=== PATIENT | male | born 2005 | race American Indian/Alaskan Native ===

== ENCOUNTER 2023-04-27 23:08 | Emergency (ER) | payer MEDICAID, OTHER ==
[2023-04-27 23:38] VITALS: BP 160/79; PULSE 95
[2023-04-27] MEDS ORDERED: Amoxicillin/Clavulanate K 875-125 MG Tab PO ONE (23:45)
[2023-04-27] MEDS ORDERED: Acetaminophen 500 MG Tab PO ONE (23:51)
== END 2023-04-28 00:04 | disposition home or self-care (01) ==
LOC: DL.ED 23:08
DX: H66.91 Otitis media, unspecified, right ear (principal)
CPT/HCPCS: 99282; A9270-GY

== ENCOUNTER 2024-02-10 17:31 | Emergency (ER) | payer BC, MEDICAID ==
[2024-02-10 18:10] VITALS: BP 167/82; PULSE 97
== END 2024-02-10 20:14 | disposition home or self-care (01) ==
LOC: DL.ED 17:31
DX: L50.9 Urticaria, unspecified (principal); I10 Essential (primary) hypertension
CPT/HCPCS: 99282